=== PATIENT | female | born 2000 | race Native Hawaiian/Other Pacific Islander ===

== ENCOUNTER 2022-07-19 15:00 | Emergency (ER) | payer OTHER ==
[~2022-07-19] VITALS: Ht 175.3 cm; Wt 102.0 kg
[2022-07-19 16:20] LABS: BLOOD UREA NITROGEN 5 MG/DL (9-23); CALCIUM LEVEL 8.9 MG/DL (8.5-10.1); CARBON DIOXIDE LEVEL 26 MMOL/L (20-31); CHLORIDE LEVEL 106 MMOL/L (98-107); CREATININE FOR GFR 0.51 MG/DL (0.55-1.30); GLOMERULAR FILTRATION RATE > 60.0 (>60); GLUCOSE, FASTING 78 MG/DL (60-100); POTASSIUM SERUM 3.9 MMOL/L (3.5-5.1); SODIUM LEVEL 136 MMOL/L (136-145)
[2022-07-19 16:32] VITALS: BP 110/65
[2022-07-19] MEDS ORDERED: MULTTAB20 PO (17:13)
== END 2022-07-19 16:40 | disposition admitted as inpatient to this hospital (09) ==
LOC: M ED 15:00
DX: O9A.213 Injury, poisoning and certain other consequences of external causes complicating pregnancy, third trimester (principal); Z3A.31 31 weeks gestation of pregnancy

== ENCOUNTER 2022-07-19 16:48 | Outpatient (CLI) | payer OTHER ==
[~2022-07-19] VITALS: Ht 175.3 cm; Wt 101.8 kg
[2022-07-19 17:10] VITALS: BP 135/83
[2022-07-19] MEDS ORDERED: MULTTAB20 PO (17:13)
[2022-07-19] MEDS ORDERED: HOME MED LIST COMPLETE! XX SCH (17:20)
[2022-07-19 18:17] VITALS: BP 125/77
== END 2022-07-19 19:30 | disposition home or self-care (01) ==
LOC: M LDO 16:48
PROVIDERS: ATTEND Obstetrics & Gynecology
DX: O9A.213 Injury, poisoning and certain other consequences of external causes complicating pregnancy, third trimester (principal); S50.00XA Contusion of unspecified elbow, initial encounter; W01.0XXA Fall on same level from slipping, tripping and stumbling without subsequent striking against object, initial encounter; Y92.9 Unspecified place or not applicable; Z3A.31 31 weeks gestation of pregnancy
CPT/HCPCS: 59025; 76815; 76820; 80048; 85460; 86901; 99284; G0463

== ENCOUNTER 2022-08-15 20:34 | Outpatient (CLI) | payer OTHER ==
[~2022-08-15] VITALS: Ht 175.3 cm; Wt 109.2 kg
[~2022-08-15 20:34] MED LIST: MULTTAB20 PO
[2022-08-15 20:55] VITALS: BP 121/76
[2022-08-15] MEDS ORDERED: HOME MED LIST COMPLETE! XX SCH (21:00)
[2022-08-15] MEDS ORDERED: CEPHALEXIN 500 MG CAP PO ONE (22:10)
[2022-08-15 22:34] VITALS: BP 121/66
== END 2022-08-15 22:45 | disposition home or self-care (01) ==
LOC: M LDO 20:34
PROVIDERS: ATTEND Obstetrics & Gynecology
DX: O23.593 Infection of other part of genital tract in pregnancy, third trimester (principal); Z3A.33 33 weeks gestation of pregnancy
CPT/HCPCS: 59025; 81001; 87086; G0463

== ENCOUNTER 2022-09-09 18:40 | Outpatient (CLI) | payer OTHER ==
[~2022-09-09] VITALS: Ht 175.3 cm; Wt 114.3 kg
[2022-09-09 19:06] VITALS: BP 118/61
[2022-09-09] MEDS ORDERED: IRON1TAB2 PO (19:11)
[2022-09-09] MEDS ORDERED: HOME MED LIST COMPLETE! XX SCH (19:15)
[2022-09-15] MEDS ORDERED: VALT500T PO (09:35)
== END 2022-09-09 20:33 | disposition home or self-care (01) ==
LOC: M LDO 18:40
PROVIDERS: ATTEND Obstetrics & Gynecology
DX: O26.893 Other specified pregnancy related conditions, third trimester (principal); R10.2 Pelvic and perineal pain; Z3A.37 37 weeks gestation of pregnancy
CPT/HCPCS: 59025; G0463

== ENCOUNTER 2022-09-18 03:05 | Inpatient (IN) | payer OTHER ==
[~2022-09-18] VITALS: Ht 175.3 cm; Wt 116.0 kg
[2022-09-18] VITALS (16 sets, daily range): BP systolic 105–147; BP diastolic 56–83
[~2022-09-18 03:05] MED LIST changes: +IRON1TAB2 PO; +VALT500T PO
[2022-09-18] MEDS ORDERED: PRENTAB9 PO (03:38)
[2022-09-18] MEDS ORDERED: HOME MED LIST COMPLETE! XX SCH (03:40)
[2022-09-18] MEDS ORDERED: LACTATED RINGER'S 1000 ML IV STA (05:09)
[2022-09-18] MEDS ORDERED: CARBOPROST TROMETHAMINE 250 MCG/ML AMP IM PRN (05:10)
[2022-09-18] MEDS ORDERED: OXYTOCIN DRIP 30 UNITS in IV 1 EA IV PRN ×6 (05:10)
[2022-09-18] MEDS ORDERED: TRANEXAMIC ACID INJection 1,000 MG in NS 100 ML IV PRN (05:10)
[2022-09-18] MEDS ORDERED: METHYLERGONOVINE MALEATE 0.2MG/ML 1ML VIAL IM PRN (05:10)
[2022-09-18] MEDS ORDERED: LR 1,000 ML IV SCH (05:10)
[2022-09-18] MEDS ORDERED: LIDOCAINE 1% MDV 20ML VIAL INFIL PRN (05:10)
[2022-09-18 06:13] LABS: HEMATOCRIT 39.2 % (36.0-47.0); MEAN CORPUSCULAR HEMOGLOBIN 30.2 pg (27.0-33.0); MEAN CORPUSCULAR HGB CONC 33.2 g/dl (32.0-36.5); PLATELET COUNT, AUTOMATED 249 10^3/uL (150-450); RED BLOOD COUNT 4.31 10^6/uL (4.00-5.40); WHITE BLOOD COUNT 11.3 10^3/uL (4.0-10.0)
[2022-09-18 07:03] LABS: HEPATITIS B SURFACE ANTIGEN NEGATIVE (NEGATIVE)
[2022-09-18 07:16] LABS: HIV 1&2 SCREEN NEGATIVE (NEGATIVE)
[2022-09-18] MEDS: LR 1,000 ML IV SCH (10:33)
[2022-09-18] MEDS: OXYTOCIN DRIP 30 UNITS in IV 1 EA IV SCH (10:37)
[2022-09-19] VITALS (59 sets, daily range): BP systolic 85–144; BP diastolic 51–82
[2022-09-19] MEDS: LR 1,000 ML IV SCH ×3 (02:27→21:54)
[2022-09-19] MEDS ORDERED: diphenhydrAMINE 50MG/ML VIAL IV PRN (13:50)
[2022-09-19] MEDS ORDERED: NALOXONE INJ 0.4MG/1ML VIAL IV PRN (13:50)
[2022-09-19] MEDS ORDERED: EPIDURAL/PCA KEYS XX PRN (13:50)
[2022-09-19] MEDS ORDERED: ePHEDrine SULFATE 25 MG/5 ML(5MG/ML) SYRINGE IVP PRN (13:50)
[2022-09-19] MEDS ORDERED: ONDANSETRON 4MG 2ML VIAL IV PRN (13:50)
[2022-09-19] MEDS ORDERED: LR 500 ML IV PRN (13:50)
[2022-09-19] MEDS: FENTANYL/ROPIVACAINE/NACL BAG 100 ML EPIDURAL SCH ×2 (14:49→21:55)
[2022-09-19] MEDS: OXYTOCIN DRIP 30 UNITS in IV 1 EA IV SCH (21:54)
[2022-09-20] VITALS (7 sets, daily range): BP systolic 105–147; BP diastolic 53–70; O2SAT 97–98
[2022-09-20] MEDS ORDERED: DOCUSATE SODIUM 100MG CAPSULE PO PRN (02:00)
[2022-09-20] MEDS ORDERED: RHOGAM 300MCG (1500IU) INJ IM SCH (02:00)
[2022-09-20] MEDS ORDERED: DIBUCAINE 1% OINTMENT 30GM TOP PRN (02:00)
[2022-09-20] MEDS ORDERED: IBUPROFEN 800 MG TAB PO PRN (02:00)
[2022-09-20] MEDS ORDERED: OXYTOCIN DRIP 30 UNITS in IV 1 EA IV SCH (02:10)
[2022-09-20 02:26] LABS: CORD GAS ABE V -6.2; CORD GAS HCO3 V 19.1 MMOL/L; CORD GAS O2 SAT V 73.2 %; CORD GAS PCO2 V 37.8 mmHg; CORD GAS PH V 7.322 UNITS; CORD GAS PO2 V 31.6 mmHg; CORD GAS SBC V 18.9 MMOL/L; CORD GAS TCO2 V 20.3 MMOL/L
[2022-09-20 02:27] LABS: CORD GAS ABE A -7.8; CORD GAS HCO3 A 20.9 MMOL/L; CORD GAS O2 SAT A 47.5 %; CORD GAS PCO2 A 54.8 mmHg; CORD GAS PH A 7.2 UNITS; CORD GAS PO2 A 23.5 mmHg; CORD GAS SBC A 17.1 MMOL/L; CORD GAS TCO2 A 22.6 MMOL/L
[2022-09-20] MEDS: ACETAMINOPHEN 500 MG TAB PO PRN ×2 (03:57→17:41)
[2022-09-20] MEDS: PRENATAL VITAMINS CHEWABLE TABLET PO SCH (08:40)
[2022-09-21 05:58] VITALS: BP 112/72; O2SAT 97
[2022-09-21] MEDS: ACETAMINOPHEN 500 MG TAB PO PRN (06:28)
[2022-09-21] MEDS: PRENATAL VITAMINS CHEWABLE TABLET PO SCH (07:26)
[2022-09-21 18:00] VITALS: BP 119/59; O2SAT 98
[2022-09-22] MEDS ORDERED: MEASLES,MUMPS,RUBELLA VACCINE INJ (MMR-II) SC.IMMUN ONE (09:00)
[2022-09-22 10:00] VITALS: BP 96/54; O2SAT 99
== END 2022-09-22 10:40 | disposition home or self-care (01) | DRG 807 ==
LOC: M LDO 03:05 → M LDI 04:34 → M OBS 09-20 04:07
PROVIDERS: ADMIT Obstetrics & Gynecology; ATTEND Obstetrics & Gynecology
PROC: 10E0XZZ Delivery of Products of Conception, External Approach (ICD-10-PCS; principal; 2022-09-20)
PROC: 0HQ9XZZ Repair Perineum Skin, External Approach (ICD-10-PCS; 2022-09-20)
DX: O99.214 Obesity complicating childbirth (principal); Z37.0 Single live birth; E66.9 Obesity, unspecified; O69.81X0 Labor and delivery complicated by cord around neck, without compression, not applicable or unspecified; O70.0 First degree perineal laceration during delivery; Z3A.38 38 weeks gestation of pregnancy